=== PATIENT | male | born 1975 | race Caucasian/White ===

== ENCOUNTER 2023-02-11 17:16 | Emergency (ER) | payer BC, SELFPAY ==
[2023-02-11 17:26] VITALS: BP 119/86; PULSE 64; RESP 14; TEMP 36.7; O2SAT 97; BMI 21.7
--- NOTE | 2023-02-11 17:38 | CRLHL7_ITS ---
For Patients: As a result of the Cures Act, medical imaging exams and procedure reports are released immediately into your electronic medical record. You may view this report before your referring provider. If you have questions, please contact your health care provider. Indication: 3rd and 4th fingers crushed in a window sill Technique: Right hand 3rd and 4th digits, three views Comparison: None. Findings: Bones: Alignment is normal. No fractures or bone lesions. Joint spaces: Unremarkable. Soft tissues: No significant soft tissue swelling. Impression: No evidence of 3rd or 4th digit fractures. Dictated by Samm Chandler MD @ 02/11/2023 6:35:12 PM (Electronically Signed)
[2023-02-11] MEDS: OXYCODONE 5 MG TABLET PO (17:50)
--- NOTE | 2023-02-11 18:44 | ED.GENADULT ---
HPI - General Adult General Date Seen: 02/11/23 Chief complaint: Extremity Pain/Injury, Upper Stated complaint: R fingers crushed Time Seen by Provider: 02/11/23 17:29 Source: patient Mode of arrival: ambulatory Limitations: no limitations History of Present Illness HPI narrative: Patient is a 47-year-old male with no pertinent medical problems presenting to emergency department for injury to his right 3rd and 4th fingers. States just shortly prior to arrival a 1 to so fell about 3.5 ft onto his hand fingers. Patient states says that he has had large amount of pain in his fingers. Denies any other injuries. That the pain starts new tips radiates down to the DIPs. Does have a small laceration. The states he started bleeding underneath the 4th digit fingernail Right after this occurred. Related Data Home Medications Medication Instructions Recorded Confirmed alprazolam 0.5 mg tablet 0.5 mg PO BID 02/11/23 02/11/23 alprazolam 1 mg tablet 1 mg PO BID 02/11/23 02/11/23 diazepam 10 mg tablet 20 mg PO BID 02/11/23 02/11/23 diazepam 5 mg tablet 5 mg PO 3XD 02/11/23 02/11/23 duloxetine 60 mg capsule,delayed 60 mg PO BID 02/11/23 02/11/23 release lamotrigine 100 mg tablet 100 mg PO DAILY 02/11/23 02/11/23 sildenafil (pulm.hypertension) 20 20 - 40 mg PO DAILY PRN 02/11/23 02/11/23 mg tablet trazodone 100 mg tablet 100 mg PO QPM 02/11/23 02/11/23 zolpidem 10 mg tablet 10 mg PO QPM 02/11/23 02/11/23 Previous Rx's Medication Instructions Recorded cephalexin 250 mg capsule 250 mg PO QID #20 caps 02/11/23 Allergies Allergy/AdvReac Type Severity Reaction Status Date / Time No Known Drug Allergies Allergy Verified 02/11/23 17:33 Review of Systems Status of ROS: Reports: 6 or more systems reviewed and unremarkable except as noted in History and below Exam Narrative: Exam Narrative: Const: Well-nourished, Well-developed, in mild distress Eyes: PERRL, no conjunctival injection, and symmetrical lids ENMT: Atraumatic external nose and ears. Moist mucous membranes. MSK:Extremities w/o deformity, Normal Active ROM. subungual hematoma under right 4th fingernail. 0.5 cm laceration noted to right flexor aspect of the 3rd digit Skin: Warm, Dry. No rashes or lesions. Neuro: Normal Muscle tone, No focal neurological deficits. Psych: Awake, Alert, & Oriented x3. Appropriate mood and affect. Const: Vital Signs, click to edit/add: Vital Signs - 24 hr 02/11/23 17:26 02/11/23 19:28 Temperature 98.0 F 98.0 F Pulse Rate [Pulse Oximeter] 64 64 Respiratory Rate 14 14 Blood Pressure [Ri t Upper Arm] 119/86 119/86 Pulse Oximetry 97 Oxygen Delivery Me thod Room Air Course Vital Signs Vital signs: Initial Vital Signs Temperature 98.0 F 02/11/23 17:26 Temperature Source Temporal Artery Scan 02/11/23 17:26 Pulse Rate 64 02/11/23 17:26 Pulse Rhythm Regular 02/11/23 17:26 Respiratory Rate 14 02/11/23 17:26 Blood Pressure 119/86 02/11/23 17:26 Blood Pressure Mean 97 02/11/23 17:26 Blood Pressure Position Sitting 02/11/23 17:26 Pulse Oximetry 97 02/11/23 17:26 Oxygen Delivery Method Room Air 02/11/23 17:26 Vital Signs Temperature 98.0 F 02/11/23 17:26 Pulse Rate 64 02/11/23 17:26 Respiratory Rate 14 02/11/23 17:26 Blood Pressure 119/86 02/11/23 17:26 Pulse Oximetry 97 02/11/23 17:26 Oxygen Delivery Method Room Air 02/11/23 17:26 Temperature 98.0 F 02/11/23 19:28 Pulse Rate 64 02/11/23 19:28 Respiratory Rate 14 02/11/23 19:28 Blood Pressure 119/86 02/11/23 19:28 Pulse Oximetry 97 02/11/23 17:26 Oxygen Delivery Method Room Air 02/11/23 17:26 Medical Decision Making MDM Narrative Medical decision making narrative: patient is a 47-year-old male who had a window so drop on his hand injuring the 3rd and 4th digits of his right hand. He has a subungual hematoma under the 4th digits fingernail with a small laceration of flexor aspect of the 3rd digit. We did do x-rays and shows no signs of fractures. No signs of foreign bodies. Oxycodone was given for pain based states this did not help. I did do digital blocks of the 3rd and 4th digits of the right hand. I did laceration repair placing 2 sutures to the laceration noted earlier. Tolerated this procedure well. I also did trephination with a electric cautery device releasing the subungual hematoma. Did see improvement in the hematoma after this was performed. Patient is otherwise doing well he will be discharged home. Since the laceration is on the flexor aspect there is concern for infection developing and I will start him on prophylactic antibiotics. I gave him strict return precautions for informed follow-up with primary care In 7 days to havethe sutures removed. his tetanus shot was 3 years ago on repeat tetanus prophylaxis is not necessary. He is safe for discharge he agrees with this plan Discharge Plan Discharge Clinical Impression: Crushing injury of finger Qualifiers: Encounter type: initial encounter Qualified Code(s): S67.10XA - Crushing injury of unspecified finger(s), initial encounter Laceration of finger of right hand Qualifiers: Encounter type: initial encounter Finger: middle finger Damage to nail status: without damage Foreign body presence: without foreign body Qualified Code(s): S61.212A - Laceration without foreign body of right middle finger without damage to nail, initial encounter Subungual hematoma of finger of right hand Qualifiers: Encounter type: initial encounter Qualified Code(s): S60.10XA - Contusion of unspecified finger with damage to nail, initial encounter Patient Disposition: Home, Self-Care Condition: Stable Instructions: Crush Injury (ED) Additional Instructions: follow-up with your primary care provider in 1 week to have sutures removed. Take Tylenol and ibuprofen for pain. Start taking them before the numbing medication wears off so you can stay ahead of the pain. Return for new or worsening symptoms. I did surgeon antibiotics for your hand return also for any concerns of infection. Prescriptions: New cephalexin 250 mg capsule 250 mg PO QID Qty: 20 0RF No Action alprazolam 1 mg tablet 1 mg PO BID alprazolam 0.5 mg tablet 0.5 mg PO BID trazodone 100 mg tablet 100 mg PO QPM diazepam 10 mg tablet 20 mg PO BID zolpidem 10 mg tablet 10 mg PO QPM lamotrigine 100 mg tablet 100 mg PO DAILY diazepam 5 mg tablet 5 mg PO 3XD duloxetine 60 mg capsule,delayed release(DR/EC) 60 mg PO BID sildenafil (pulm.hypertension) 20 mg tablet 20 - 40 mg PO DAILY PRN Follow Up/Referrals: Provider,Not a Local [Primary Care Provider] - Stand Alone Forms: [facility] Info Instructions Procedures Laceration right 3rd digit: Name of person performing procedure: Nito Galindo Site: hand ( 3rd digit) Side (If applicable): right Size (cm): 0.5 Description: linear and clean Depth: simple, single layer Local Anesthetic: lidocaine 1% ( digital block) Pre-repair: wound explored, irrigated extensively and deep structures intact Skin layer closed with: nylon Size (cm): 5-0 Number of sutures: 2 Technique: simple, interrupted
[2023-02-11 19:28] VITALS: BP 119/86; PULSE 64; RESP 14; TEMP 36.7
== END 2023-02-11 19:28 | disposition home or self-care (01) ==
PROVIDERS: Emergency Provider Student in an Organized Health Care Education/Training Program
DX: S61.214A Laceration without foreign body of right ring finger without damage to nail, initial encounter (principal); S67.192A Crushing injury of right middle finger, initial encounter; W19.XXXA Unspecified fall, initial encounter
CPT/HCPCS: 12001; 73140; 99282; 99283; A9270

== ENCOUNTER 2023-03-03 17:01 | Emergency (ER) | payer BC, SELFPAY ==
[2023-03-03 17:18] VITALS: BP 100/64; PULSE 77; RESP 16; TEMP 36.4; O2SAT 96; BMI 21.4
--- NOTE | 2023-03-03 17:21 | CRLHL7_ITS ---
For Patients: As a result of the Century Cures Act, medical imaging exams and procedure reports are released immediately into your electronic medical record. You may view this report before your referring provider. If you have questions, please contact your health care provider. INDICATION: Pain. TECHNIQUE: Three views. FINDINGS: There is no radiographically evident acute/displaced fracture/dislocation are tiny osteophytes about the radial head. No radiographically evident joint effusion. Bone density normal. IMPRESSION: No acute/displaced fracture. Mild chronic change, as above. Dictated by Rubio Gordon MD @ 03/03/2023 6:30:31 PM (Electronically Signed)
--- NOTE | 2023-03-03 18:38 | ED.UPPEXIN ---
HPI - Extremity Injury (Upper) General Chief Complaint: Extremity Pain/Injury, Upper Stated Complaint: L elbow injury Time Seen by Provider: 03/03/23 18:32 History of Present Illness HPI narrative: This 47-year-old male comes in reporting pain on the lateral aspect of his left elbow over the past 4 5 days. He does not report any particular injury event. He also has loss of sensation in his left thumb, index finger, and middle finger over the past couple months. He attempted to get into a clinic appointment but had to wait for several weeks. Related Data Home Medications Medication Instructions Recorded Confirmed alprazolam 0.5 mg tablet 0.5 mg PO BID 02/11/23 02/11/23 alprazolam 1 mg tablet 1 mg PO BID 02/11/23 02/11/23 diazepam 10 mg tablet 20 mg PO BID 02/11/23 02/11/23 diazepam 5 mg tablet 5 mg PO 3XD 02/11/23 02/11/23 duloxetine 60 mg capsule,delayed 60 mg PO BID 02/11/23 02/11/23 release lamotrigine 100 mg tablet 100 mg PO DAILY 02/11/23 02/11/23 sildenafil (pulm.hypertension) 20 20 - 40 mg PO DAILY PRN 02/11/23 02/11/23 mg tablet trazodone 100 mg tablet 100 mg PO QPM 02/11/23 02/11/23 zolpidem 10 mg tablet 10 mg PO QPM 02/11/23 02/11/23 Previous Rx's Medication Instructions Recorded cephalexin 250 mg capsule 250 mg PO QID #20 caps 02/11/23 ketorolac 10 mg tablet 10 mg PO Q8H 5 days #15 tabs 03/03/23 methylprednisolone 4 mg tablets in See Rx Instructions PO .COMPLEX 03/03/23 a dose pack (Medrol (Hosea)) #21 ea Allergies Allergy/AdvReac Type Severity Reaction Status Date / Time No Known Drug Allergies Allergy Verified 02/11/23 17:33 Review of Systems Status of ROS: Reports: 10 or more systems reviewed and unremarkable except as noted in History and below Narrative: Constitutional: No fevers, no weight gain or loss. Eyes: No discharge. No vision changes. HENT: No congestion, no sore throat, no ear pain. Cardiovascular: No chest pain, no palpitations. Respiratory: No shortness of breath, no wheezes, no cough. Gastrointestinal: No abdominal pain, no vomiting, no diarrhea. Genitourinary: No dysuria, no hematuria. Musculoskeletal: Left arm and hand symptoms as described above. Skin: No rashes, no pruritis. Neurological: No dizziness, weakness, sensory change, speech change. Endo/Heme/Allergies: No bruising or bleeding. No polydipsia. Pysch: no suicidality, no anxiety, no insomnia. All other systems reviewed and are negative. [facility] Social History Smoking Status: Smoker, status unknown Exam Narrative: Exam Narrative: Constitutional: Well-developed, well-nourished, no acute distress. HEENT: Normocephalic, atraumatic. Neck: Normal range of motion. Nontender. Supple. Heart: Intact distal pulses. Lungs: No chest discomfort. No wheezes, rhonchi, or rales. Abdomen: Nontender. Back: Normal range of motion. Extremities: Pain over the left radial head typical of lateral epicondylitis. Also loss of sensation in the fingers of the left hand involving the median nerve distribution. Phalen's test and Tinel's signs are positive. The patient has trouble bringing his thumb to touch is little finger. Skin: Intact. No rash. Warm. No erythema or pallor. Neurologic: No altered sensation. No weakness. Alert and oriented. Psychiatric: No suicidality. No anxiety or depression. No insomnia. Nursing notes and vitals signs are reviewed. Const: Vital Signs, click to edit/add: Vital Signs - 24 hr 03/03/23 17:18 Temperature 97.6 F Pulse Rate [Right Pulse Oximeter] 77 Respiratory Rate 16 Blood Pressure [Ri ght Upper Arm] 100/64 Pulse Oximetry 96 Oxygen Delivery Me thod Room Air Course Vital Signs Vital signs: Initial Vital Signs Temperature 97.6 F 03/03/23 17:18 Temperature Source Temporal Artery Scan 03/03/23 17:18 Pulse Rate 77 03/03/23 17:18 Pulse Rhythm Regular 03/03/23 17:18 Respiratory Rate 16 03/03/23 17:18 Blood Pressure 100/64 03/03/23 17:18 Blood Pressure Mean 76 03/03/23 17:18 Blood Pressure Position Sitting 03/03/23 17:18 Pulse Oximetry 96 03/03/23 17:18 Oxygen Delivery Method Room Air 03/03/23 17:18 Vital Signs Temperature 97.6 F 03/03/23 17:18 Pulse Rate 77 03/03/23 17:18 Respiratory Rate 16 03/03/23 17:18 Blood Pressure 100/64 03/03/23 17:18 Pulse Oximetry 96 03/03/23 17:18 Oxygen Delivery Method Room Air 03/03/23 17:18 Temperature 97.6 F 03/03/23 17:18 Pulse Rate 77 03/03/23 17:18 Respiratory Rate 16 03/03/23 17:18 Blood Pressure 100/64 03/03/23 17:18 Pulse Oximetry 96 03/03/23 17:18 Oxygen Delivery Method Room Air 03/03/23 17:18 MDM - Extremity Injury (Upper) MDM Narrative Medical decision making narrative: This patient has typical symptoms of lateral epicondylitis in his left elbow. He also has more advanced or progressed symptoms related to carpal tunnel syndrome in the left hand. Patient received a wrist splint and prescriptions for Medrol Dosepak and Toradol. He is advised to follow-up with orthopedic clinic regarding these matters, especially the carpal tunnel syndrome I as his function of his hand is starting to be come impaired. Imaging Data XR Elbow: Radiologist's impression: No acute/displaced fracture. Mild chronic change, as above. Discharge Plan Discharge Clinical Impression: Epicondylitis, lateral, left, Carpal tunnel syndrome of left wrist Patient Disposition: Home, Self-Care Condition: Unchanged Additional Instructions: Wear wrist splint. Take medication as needed and directed. Follow up with orthopedic clinic. Call for appointment by dialing [phone]. Prescriptions: New ketorolac 10 mg tablet 10 mg PO Q8H 5 Days Qty: 15 0RF methylprednisolone [Medrol (Hosea)] 4 mg tablets,dose pack See Rx Instructions .ROUTE .COMPLEX Qty: 21 0RF Rx Instructions: orally per package directions No Action alprazolam 1 mg tablet 1 mg PO BID alprazolam 0.5 mg tablet 0.5 mg PO BID trazodone 100 mg tablet 100 mg PO QPM diazepam 10 mg tablet 20 mg PO BID zolpidem 10 mg tablet 10 mg PO QPM lamotrigine 100 mg tablet 100 mg PO DAILY diazepam 5 mg tablet 5 mg PO 3XD duloxetine 60 mg capsule,delayed release(DR/EC) 60 mg PO BID sildenafil (pulm.hypertension) 20 mg tablet 20 - 40 mg PO DAILY PRN cephalexin 250 mg capsule 250 mg PO QID Qty: 20 0RF Follow Up/Referrals: Provider,Not a Local [Primary Care Provider] - Stand Alone Forms: [facility] Info Instructions
== END 2023-03-03 19:35 | disposition home or self-care (01) ==
PROVIDERS: Emergency Provider Emergency Medicine Emergency Medical Services
DX: M77.12 Lateral epicondylitis, left elbow (principal); G56.02 Carpal tunnel syndrome, left upper limb
CPT/HCPCS: 29125; 73080; 99284

== ENCOUNTER 2023-05-23 20:06 | Emergency (ER) | payer BC, SELFPAY ==
[2023-05-23 20:15] VITALS: BP 100/67; PULSE 89; RESP 18; TEMP 36.6; O2SAT 99; BMI 22.0
--- NOTE | 2023-05-23 20:40 | ED_ITS ---
HPI - General Adult General Date Seen: 05/23/23 Chief complaint: Dental/Oral/Mouth Injury/Pain Stated complaint: thrush Time Seen by Provider: 05/23/23 20:18 Source: patient Mode of arrival: ambulatory Limitations: no limitations History of Present Illness HPI narrative: Patient is a 47-year-old male who presents for mouth pain. He was seen 1 month ago and at that time had some erythema and some ulcerations, diagnosis was unclear, he was given Bicillin IM as well as fluconazole, magic mouthwash, and oxycodone. He says he did feel improved for a while but now has recurrent pain behind his teeth and on his cheek. He declined HIV testing when seen previously. He denies history of diabetes or any other immunosuppressive conditions. 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 Related Data Home Medications Medication Instructions Recorded Confirmed alprazolam 1 mg tablet 1 mg PO BID 02/11/23 04/20/23 diazepam 10 mg tablet 20 mg PO BID 02/11/23 04/20/23 duloxetine 60 mg capsule,delayed 60 mg PO BID 02/11/23 04/20/23 release lamotrigine 100 mg tablet 100 mg PO DAILY 02/11/23 04/20/23 sildenafil (pulm.hypertension) 20 20 - 40 mg PO DAILY PRN 02/11/23 04/20/23 mg tablet trazodone 100 mg tablet 100 mg PO QPM 02/11/23 04/20/23 zolpidem 10 mg tablet 10 mg PO QPM 02/11/23 04/20/23 Previous Rx's Medication Instructions Recorded naproxen 500 mg tablet 500 mg PO BID #30 tabs 03/10/23 Magic Mouthwash 5 ml PO QID #120 mL 04/20/23 (Lidocaine/Benadryl/Maalox) 120 mL suspension fluconazole 200 mg tablet 200 mg PO QDAY #7 tabs 04/20/23 oxycodone 5 mg tablet 5 - 10 mg (1 - 2 x 5 mg) PO Q6H 04/20/23 PRN pain #16 tabs Magic Mouthwash 10 ml PO TID-QID PRN #120 mL 05/23/23 (Lidocaine/Benadryl/Maalox) 120 mL suspension Allergies Allergy/AdvReac Type Severity Reaction Status Date / Time No Known Drug Allergies Allergy Verified 05/23/23 20:18 [facility] Medical History (Updated 05/23/23 @ 20:27 by Sharyn Muse MD) Chronic pain ?G89.29 - Other chronic pain (ICD-10) Sleep apnea ?G47.30 - Sleep apnea, unspecified (ICD-10) Tuberculosis ?A15.9 - Respiratory tuberculosis unspecified (ICD-10) Surgical History (Updated 03/10/23 @ 14:20 by Luba Hearn ~ [facility], [facility]) Pneumothorax ?J93.9 - Pneumothorax, unspecified (ICD-10) H/O arthroscopy of shoulder ?Z98.890 - Other specified postprocedural states (ICD-10) Social History Smoking Status: Smoker, status unknown Exam Narrative: Exam Narrative: Vital signs reviewed In general, alert, nontoxic male. Voice is normal. Eyes: Sclera clear. ENT: He has 1 well demarcated ulceration on the left buccal mucosa approximately 0.5 cm in size. I do not see any other intraoral lesions, specifically the palate and along all of his gums look normal without erythema or other lesions. There is no evidence of thrush. Skin: Warm dry well perfused. Affect: Labile. Const: Vital Signs, click to edit/add: Vital Signs - 24 hr 05/23/23 20:15 Temperature 97.8 F Pulse Rate [Right Pulse Oximeter] 89 Respiratory Rate 18 Blood Pressure [Ri ght Upper Arm] 100/67 Pulse Oximetry 99 Oxygen Delivery Me thod Room Air Documenting provider has reviewed patient's vital signs: yes Course Course ED Course: Discussed with patient that I do not see any evidence of thrush today. Aphthous ulcers are typically viral, I am not certain why he had problems a month ago and has recurrent problems now and I suggested that he might follow up with ENT for further evaluation. For pain I suggested ibuprofen and Tylenol as well as Magic mouthwash. He initially told me that his was taking care of the Magic mo uthwash and she was out of town, then he said that they were almost out of it anyway. He tells me that ibuprofen and Tylenol have not been helping with pain. He became fairly frustrated with me that I was not ?doing anything for him?. I have reviewed with him that I do not have a specific treatment for aphthous ulcers, that they typically heal just with time. If he felt strongly about the possibility of thrush I did offer to fill the fluconazole but also told him I did not think that it would provide any benefit for him. He does not seem interested in fluconazole. He tells me he ?does not care about narcotics, but it does seem that mostly what he wants is pain control, not in the form of [id number] medications. Nothing that I offered him seem to appease his anger at me, and he ultimately stormed off, threw his discharge paperwork in the trash and left. Vital Signs Vital signs: Initial Vital Signs Temperature 97.8 F 05/23/23 20:15 Temperature Source Temporal Artery Scan 05/23/23 20:15 Pulse Rate 89 05/23/23 20:15 Pulse Rhythm Regular 05/23/23 20:15 Pulse Strength 3+ Normal 05/23/23 20:15 Respiratory Rate 18 05/23/23 20:15 Blood Pressure 100/67 05/23/23 20:15 Blood Pressure Mean 78 05/23/23 20:15 Blood Pressure Position Sitting 05/23/23 20:15 Pulse Oximetry 99 05/23/23 20:15 Oxygen Delivery Method Room Air 05/23/23 20:15 Vital Signs Temperature 97.8 F 05/23/23 20:15 Pulse Rate 89 05/23/23 20:15 Respiratory Rate 18 05/23/23 20:15 Blood Pressure 100/67 05/23/23 20:15 Pulse Oximetry 99 05/23/23 20:15 Oxygen Delivery Method Room Air 05/23/23 20:15 Temperature 97.8 F 05/23/23 20:15 Pulse Rate 89 05/23/23 20:15 Respiratory Rate 18 05/23/23 20:15 Blood Pressure 100/67 05/23/23 20:15 Pulse Oximetry 99 05/23/23 20:15 Oxygen Delivery Method Room Air 05/23/23 20:15 Discharge Plan Discharge Clinical Impression: Aphthous ulcer Patient Disposition: Home, Self-Care Condition: Stable Instructions: Oral Mucositis (ED) Additional Instructions: Ibuprofen 400 mg plus Tylenol 1000 mg 3 times daily with food. Magic mouthwash as needed. ENT follow-up for further questions [phone]. Activity Level: No Restrictions Discharge Diet: Regular Prescriptions: New Magic Mouthwash (Lidocaine/Benadryl/Maalox) 120 mL suspension 10 ml PO TID-QID PRNQty: 120 0RF Rx Instructions: Lidocaine Viscous 2 % mucosal solution 40 mL; Maalox 200 mg-200 mg-20 mg/5 mL oral suspension 40 mL; Benadryl 12.5 mg/5 mL oral elixir 40 mL; Per 120 mL SWISH AND SPIT. MAY COMPOUND IF FIRST PRODUCT IS NOT AVAILABLE. No Action fluconazole 200 mg tablet 200 mg PO QDAY Qty: 7 0RF Magic Mouthwash (Lidocaine/Benadryl/Maalox) 120 mL suspension 5 ml PO QID Qty: 120 1RF Rx Instructions: Lidocaine Viscous 2 % mucosal solution 40 mL; Maalox 200 mg-200 mg-20 mg/5 mL oral suspension 40 mL; Benadryl 12.5 mg/5 mL oral elixir 40 mL; Per 120 mL SWISH AND SPIT. MAY COMPOUND IF FIRST PRODUCT IS NOT AVAILABLE. oxycodone 5 mg tablet 5 - 10 mg PO Q6H PRN (Reason: pain) Qty: 16 0RF naproxen 500 mg tablet 500 mg PO BID Qty: 30 1RF alprazolam 1 mg tablet 1 mg PO BID trazodone 100 mg tablet 100 mg PO QPM diazepam 10 mg tablet 20 mg PO BID zolpidem 10 mg tablet 10 mg PO QPM lamotrigine 100 mg tablet 100 mg PO DAILY duloxetine 60 mg capsule,delayed release(DR/EC) 60 mg PO BID sildenafil (pulm.hypertension) 20 mg tablet 20 - 40 mg PO DAILY PRN Follow Up/Referrals: Provider,Not a Local [Primary Care Provider] - Stand Alone Forms: [employer] Info Instructions
--- NOTE | 2023-05-23 20:41 | ED.NURSE ---
Addendum entered by Kim York RN 05/23/23 21:30: Upon discharge pt signed paperwork attached to clipboard, then tossed clipboard across the bed. This nurse asked pt if there was anything more he needed, pt states You are the 4th person who has treated me like this, I need the doctor back here to ask her for pain medication. Pt's hands were visibly shaking when nurse retrieved paperwork at the end of the bed. This nurse asked security to stand by while doctor went into room to talk with patient. Security stood outside of door, while pt and doctor talked about medications. Original Note: Pt became visibly and verbally angry upon discharge, demanding to see the doctor for pain medication prescription. Doctor went to talk to pt and security was present. After talking with doctor, pt did leave the building.
== END 2023-05-23 20:40 | disposition home or self-care (01) ==
LOC: ED 20:35
PROVIDERS: Emergency Provider Emergency Medicine
DX: K12.0 Recurrent oral aphthae (principal)
CPT/HCPCS: 99283

== ENCOUNTER 2023-12-12 07:33 | Emergency (ER) | payer BC, SELFPAY ==
[2023-12-12 07:38] VITALS: BP 100/74; PULSE 74; RESP 20; TEMP 37.1; O2SAT 95; BMI 23.1
--- NOTE | 2023-12-12 08:07 | ED_ITS ---
HPI - General Adult General Chief complaint: Ear/Nose/Throat Problem Stated complaint: Shortness of breath, congestion Time Seen by Provider: 12/12/23 07:53 Source: patient Mode of arrival: ambulatory Limitations: no limitations History of Present Illness HPI narrative: 48-year-old male coming in today complaining of congestion. Patient states that he had cold symptoms approximately 5 weeks ago in started using Afrin nasal spray. He states that he uses Afrin daily and cannot get off of it. He denies pain across his face, no nasal discharge. He has ear popping every now and then but no pain or discharge of the ears. He is not coughing. He denies fevers. Has a normal appetite. Denies headaches. Related Data Home Medications ?Medication ?Instructions ?Recorded ?Confirmed duloxetine 60 mg capsule,delayed 60 mg PO BID 02/11/23 11/09/23 release lamotrigine 100 mg tablet 100 mg PO DAILY 02/11/23 11/09/23 sildenafil (pulm.hypertension) 20 20 - 40 mg PO DAILY PRN 02/11/23 11/09/23 mg tablet trazodone 100 mg tablet 100 mg PO QPM 02/11/23 11/09/23 zolpidem 10 mg tablet 10 mg PO QPM 02/11/23 11/09/23 alprazolam 0.5 mg tablet 0.5 mg PO 3XD PRN 08/10/23 11/09/23 risperidone 0.5 mg tablet 0.5 mg PO BID 08/10/23 11/09/23 Previous Rx's ?Medication ?Instructions ?Recorded methylprednisolone 4 mg tablets in See Rx Instructions PO .COMPLEX 12/12/23 a dose pack (Medrol ([facility])) #21 ea Allergies Allergy/AdvReac Type Severity Reaction Status Date / Time No Known Drug Allergies Allergy Verified 11/12/23 12:52 Review of Systems Status of ROS: Reports: 10 or more systems reviewed and unremarkable except as noted in History and below [facility] Medical History Chronic pain ?G89.29 - Other chronic pain (ICD-10) Sleep apnea ?G47.30 - Sleep apnea, unspecified (ICD-10) Tuberculosis ?A15.9 - Respiratory tuberculosis unspecified (ICD-10) Surgical History Pneumothorax ?J93.9 - Pneumothorax, unspecified (ICD-10) H/O arthroscopy of shoulder ?Z98.890 - Other specified postprocedural states (ICD-10) Social History Smoking Status: Never smoker Do you use any of these nicotine containing products: None Second hand tobacco smoke exposure: No How often do you have a drink containing alcohol: never How often do you have six or more drinks on one occasion: Never AUDIT-C Alcohol total score: 0 Non-prescribed substance use: denies use and marijuana (any form) Non-prescribed substance use details: medical marijuana ptsd service: No Exam Narrative: Exam Narrative: Well-nourished well-developed patient in no acute distress. Alert and oriented. Answers questions appropriately. Mood and affect are appropriate. Thoughts are goal oriented and rational. No tangential or magical thinking noted. Patient speaks in full sentences without needing to catch his breath. HEENT: Normocephalic atraumatic. Pupils are equally round reactive to light. Extraocular muscles are intact. Conjunctivae are moist without any icterus noted. Moist mucous membranes. Posterior pharynx is normal. Neck is soft without any lymphadenopathy or thyromegaly. No masses are appreciated. TMs are clear bilaterally. Nasal turbinates are swollen/boggy bilaterally. Const: Vital Signs, click to edit/add: Vital Signs - 24 hr 12/12/23 07:38 Temperature 98.8 F Pulse Rate [Pulse Oximeter] 74 Respiratory Rate 20 Blood Pressure [Le ft Upper Arm] 100/74 Pulse Oximetry 95 Oxygen Delivery Me thod Room Air Course Vital Signs Vital signs: Initial Vital Signs Temperature 98.8 F 12/12/23 07:38 Temperature Source Temporal Artery Scan 12/12/23 07:38 Pulse Rate 74 12/12/23 07:38 Pulse Rhythm Regular 12/12/23 07:38 Respiratory Rate 20 12/12/23 07:38 Blood Pressure 100/74 12/12/23 07:38 Blood Pressure Mean 82 12/12/23 07:38 Blood Pressure Position Sitting 12/12/23 07:38 Pulse Oximetry 95 12/12/23 07:38 Oxygen Delivery Method Room Air 12/12/23 07:38 Vital Signs Temperature 98.8 F 12/12/23 07:38 Pulse Rate 74 12/12/23 07:38 Respiratory Rate 20 12/12/23 07:38 Blood Pressure 100/74 12/12/23 07:38 Pulse Oximetry 95 12/12/23 07:38 Oxygen Delivery Method Room Air 12/12/23 07:38 Temperature 98.8 F 12/12/23 07:38 Pulse Rate 74 12/12/23 07:38 Respiratory Rate 20 12/12/23 07:38 Blood Pressure 100/74 12/12/23 07:38 Pulse Oximetry 95 12/12/23 07:38 Oxygen Delivery Method Room Air 12/12/23 07:38 Medical Decision Making MDM Narrative Medical decision making narrative: 48-year-old male with rebound congestion secondary to chronic Afrin use. Patient will stop using the Afrin. We will put him on a steroid nasal spray and a medrol dose pack to see if we can get his swelling to come down faster. Follow-up with ENT if not improving. Medical Records Medical records reviewed: Yes I reviewed the patient's medical records Discharge Plan Discharge Clinical Impression: Congestion of respiratory tract Patient Disposition: Home, Self-Care Condition: Stable Additional Instructions: Start using Nasonex or Flonase-either one is a steroid [id number] nasal spray. Use as directed. When you place the tip of the bottle in each nostril, tilt towards the outer border of the nose, towards the ear. Take all steroids as prescribed. Follow-up with [id number] specialist if not improving. Stop using Afrin. Prescriptions: New methylprednisolone [Medrol ([facility])] 4 mg tablets,dose pack See Rx Instructions .ROUTE .COMPLEX Qty: 21 0RF Rx Instructions: orally per package directions No Action risperidone 0.5 mg tablet 0.5 mg PO BID alprazolam 0.5 mg tablet 0.5 mg PO 3XD PRN trazodone 100 mg tablet 100 mg PO QPM zolpidem 10 mg tablet 10 mg PO QPM lamotrigine 100 mg tablet 100 mg PO DAILY duloxetine 60 mg capsule,delayed release(DR/EC) 60 mg PO BID sildenafil (pulm.hypertension) 20 mg tablet 20 - 40 mg PO DAILY PRN Follow Up/Referrals: Provider,Not a Local [Primary Care Provider] - Stand Alone Forms: My-Apps Info Instructions
== END 2023-12-12 08:33 | disposition home or self-care (01) ==
PROVIDERS: Emergency Provider Family Medicine
DX: J98.8 Other specified respiratory disorders (principal)
CPT/HCPCS: 99283

== ENCOUNTER 2025-03-14 11:12 | Outpatient (CLI) | payer OTHER, SELFPAY | END 2025-03-14 11:13 | disposition home or self-care (01) | PROVIDERS: PCP Family Medicine; Visit Provider Internal Medicine | DX: R20.2 Paresthesia of skin (principal) | CPT/HCPCS: 80053; 82607; 84165; 84443 ==